=== PATIENT | male | born 1975 | race Two or more races ===

== ENCOUNTER 2017-05-13 18:12 | Emergency (ER) | payer MEDICAID ==
[~2017-05-13] VITALS: Ht 167.6 cm; Wt 83.9 kg
[~2017-05-13 18:12] MED LIST: LEVAQUIN750 MG ORAL; NAPROSYN500 M1 ORAL
[2017-05-13] MEDS ORDERED: NKM (18:31)
[2017-05-13] MEDS ORDERED: oxyCODONE HCL/Acetaminophen 5/325mg ORAL ONE (18:45)
[2017-05-13] MEDS ORDERED: Ampicillin/Sulbactam Sod 1.5 GM in NS 55 ML IVPB SCH (19:00)
[2017-05-13] MEDS ORDERED: Unasyn 1.5gm Vial ONE (19:18)
--- NOTE | 2017-05-13 20:00 | Emergency Room Report ---
History of Present Illness General Chief Complaint: Pain Source: Patient Present Illness HPI 42-year-old male presents to the emergency department complaining of 9/10 in severity pain, swelling, erythema that has been progressive x3 days. Patient reports that 3 days ago he was poked in the hand by times in the palm [place]. Patient denies fevers or chills. Patient reports pain with bending or straightening his left middle finger. Patient denies tenderness to the palmar aspect of the middle finger. Patient states he is up-to-date with vaccinations. Denies numbness tingling or loss of sensation or gross motor movements of the extremities, incontinence of bowel or bladder. Denies CP, Palpitations, LOC, AMS, dizziness, Changes in Vision, Sensation, paresthesias, or a sudden severe headache. Allergies: Coded Allergies: No Known Allergies (Unverified , 07/29/13) Patient History Past Medical History: see triage record Past Surgical History: none Pertinent Family History: none Immunizations: UTD Reviewed Nursing Documentation: PMH: Agreed, PSxH: Agreed Nursing Documentation-PMH Past Medical History: No Stated History Review of Systems All Other Systems: negative except mentioned in HPI Physical Exam Vital Signs Date Time Temp Pulse Resp B/P (MAP) Pulse Ox O2 Delivery O2 Flow Rate FiO2 05/13/17 18:27 98.4 69 16 142/87 96 Room Air 98.4 Sp02 EP Interpretation: reviewed, normal General Appearance: no apparent distress, alert, GCS 15, non-toxic Head: normocephalic, atraumatic ENT: hearing grossly normal, normal voice Neck: full range of motion Respiratory: lungs clear, normal breath sounds, speaking full sentences Cardiovascular #1: regular rate, rhythm, normal capillary refill Gastrointestinal: normal bowel sounds, non tender, soft Musculoskeletal: back normal, gait/station normal, normal range of motion - with pain., swelling - LMF, tender - swelling, ttp to the dorsal proximal aspect of the left middle finger, mild flexed position of the PIP joint. Pt. is able to fully extend finger however pain is exacerbated, pt. has easier time flexing. mild dorsal erythema, NVI Neurologic: alert, oriented x3, responsive, motor strength/tone normal, sensory intact, speech normal, grossly normal Psychiatric: judgement/insight normal Skin: no rash, warm/dry, well hydrated, other - mild erythema to the dorsal LMF with swelling noted. no obvious open wounds. no blisters or vesciles. Medical Decision Making PA Attestation Dr. strong is my supervising Physician whom patient management has been discussed with. Diagnostic Impression: Primary Impression: Tenosynovitis of finger Additional Impression: Cellulitis and abscess of finger, unspecified ER Course 42-year-old male presents to the emergency department complaining of 9/10 in severity pain, swelling, erythema that has been progressive x3 days. Patient reports that 3 days ago he was poked in the hand by times in the [place]. Patient denies fevers or chills. Patient reports pain with bending or straightening his left middle finger. Patient denies tenderness to the palmar aspect of the middle finger. Patient states he is up-to-date with vaccinations. Denies numbness tingling or loss of sensation or gross motor movements of the extremities, incontinence of bowel or bladder. Denies CP, Palpitations, LOC, AMS, dizziness, Changes in Vision, Sensation, paresthesias, or a sudden severe headache. Ddx considered but are not limited to Fracture, dislocation, contusion, Sprain/ Strain/Spasm, Tenosynovitis, cellulitis, trigger finger just to name a few. Vital signs: are WNL, pt. is afebrile H&PE are most consistent with musculoskeletal injury will perform imaging to r/ o fractures/dislocations or subcutaneous gas. ORDERS: - X-ray Left Hand 3 views - negative for fx, Dislocation, or significant soft tissue injury or obvious subcutaneous gas- per preliminary read in ED, and signed by HEMA Teran, my supervising physician has reviewed, and agrees with my interpretation. ED INTERVENTIONS: - Pain Control PO - IV Abx : Unasyn IV - D/ w pt that will attempt IV dose of abx here in ED then will be D/C'd with oral abx. d/w pt. to monitor regularly and return immediately to ED with worsening or new symptoms. DISCHARGE: At this time pt. is stable for d/c to home. Will provide printed patient care instructions, and any necessary prescriptions. Care plan and follow up instructions have been discussed with the patient prior to discharge. Other X-Ray Diagnostic Results Other X-Ray Diagnostic Results : X-Ray ordered: Left Hand # of Views/Limited Vs Complete: 3 View Indication: Pain EP Interpretation: Yes HEMA Xray: Interpretation reviewed, by supervising MD, and agrees with findings. Interpretation: no dislocation, no soft tissue swelling - no subcutaneous gas, no fractures Impression: No acute disease Electronically Signed by: Codie Teran PA-C Last Vital Signs Date Time Temp Pulse Resp B/P (MAP) Pulse Ox O2 Delivery O2 Flow Rate FiO2 05/13/17 19:20 98.4 05/13/17 18:27 69 16 142/87 96 Room Air Disposition: HOME, SELF-CARE Condition: Stable Scripts Ibuprofen* (MOTRIN*) 600 Mg Tablet 600 MG ORAL THREE TIMES A DAY, #30 TAB 0 Refills Prov: Codie Teran 05/13/17 Amoxicillin/Potassium Clav 875-125* (AUGMENTIN 875-125 TABLET*) 1 Each Tablet 1 TAB ORAL TWICE A DAY for 7 Days, #14 TAB Prov: Codie Teran 05/13/17 Departure Forms: Return to Work Return to Work Date: May 15, 2017 Work Restrictions: No Heavy Lifting Other Restrictions: light duty , limited use of left hand x 1 week. Return to Full Activity: May 21, 2017 Patient Instructions: Infectious Finger Tenosynovitis Additional Instructions: Take medications as directed. Follow up with a Primary Care Provider in 3-5 days, even if your symptoms have resolved. --Please review list of primary care clinics, if you do not already have a primary care provider Return sooner to ED if new symptoms occur, or current symptoms become worse. - Please note that this Emergency Department Report was dictated using [employer] test engineer technology software, occasionally this can lead to erroneous entry secondary to interpretation by the dictation equipment. Codie Teran May 13, 2017 20:00
[2017-05-13] MEDS ORDERED: IBUPROFEN600 MG ORAL (20:24)
[2017-05-13] MEDS ORDERED: AUGMENTIN 875-1 EAC1 ORAL (20:24)
[2017-05-13 20:33] VITALS: BP 158/87
--- NOTE | 2017-05-14 11:42 | Diagnostic Imaging Report ---
Indication: pain Findings: 3 views of the left hand were obtained. Normal alignment is demonstrated. No acute fractures, erosions, or periosteal reaction are seen. Soft tissues are unremarkable. Impression: No acute findings.
== END 2017-05-13 20:40 | disposition home or self-care (01) ==
LOC: EMR 18:45
DX: M65.9 Synovitis and tenosynovitis, unspecified (principal); L03.012 Cellulitis of left finger
CPT/HCPCS: 73130; 96365; 99284; J0295